=== PATIENT | male | born 1965 | race Asian ===

== ENCOUNTER 2017-05-22 09:38 | Day surgery (SDC) | payer BC ==
[~2017-05-22] VITALS: Ht 172.7 cm; Wt 78.8 kg
[2017-05-22] MEDS ORDERED: LACTATED RINGERS 1,000 ML IV SCH (10:14)
[2017-05-22] MEDS ORDERED: FINA5TAB4 PO (10:18)
[2017-05-22] MEDS ORDERED: OXYBUTIN PO (10:18)
[2017-05-22] MEDS ORDERED: TAMS0.4C2 PO (10:18)
[2017-05-22 10:25] VITALS: BP 110/76
[2017-05-22] MEDS ORDERED: MIDAZOLAM 1 MG/ML, 2ML ONE ×2 (10:49→11:02)
[2017-05-22] MEDS ORDERED: FENTANYL PF 250 MCG/5ML ONE (11:00)
[2017-05-22] MEDS ORDERED: LIDOCAINE-MPF 2% ,5ML ONE (11:01)
[2017-05-22] MEDS ORDERED: PROPOFOL 10 MG/ML, 20ML ONE (11:01)
[2017-05-22] MEDS ORDERED: KETAMINE 10 MG/ML, 20ML ONE (11:02)
[2017-05-22] MEDS ORDERED: CIPROFLOXACIN/PMX 400MG/200ML 200 ML ONE (11:03)
[2017-05-22] MEDS ORDERED: GENTAMICIN 80 MG/2 ML ONE (11:07)
[2017-05-22] MEDS ORDERED: AMPICILLIN 1 GM ONE (11:07)
[2017-05-22] MEDS ORDERED: DEXAMETHASONE 4 MG/ML, 1ML ONE ×2 (11:15)
[2017-05-22] MEDS ORDERED: EPHEDRINE 50 MG/ML, 1ML ONE (11:17)
[2017-05-22] MEDS ORDERED: hydrALAzine 20 MG/ML, 1ML IV PRN (11:30)
[2017-05-22] MEDS ORDERED: FENTANYL PF 100 MCG/2ML IV PRN (11:30)
[2017-05-22] MEDS ORDERED: ACETAMINOPHEN 325 MG TABLET PO PRN (11:30)
[2017-05-22] MEDS ORDERED: HYDROmorphone 1 MG/ML, 1ML IV PRN (11:30)
[2017-05-22] MEDS ORDERED: MEPERIDINE/PF 25MG/0.5ML IVPush PRN (11:30)
[2017-05-22] MEDS ORDERED: LABETALOL 5MG/ML, 20ML IV PRN (11:30)
[2017-05-22] MEDS ORDERED: PROMETHAZINE 25 MG/ML, 1ML IV PRN (11:30)
[2017-05-22] MEDS ORDERED: ONDANSETRON 2MG/ML, 2ML IVPush PRN (11:30)
[2017-05-22] MEDS ORDERED: OXYcodone 5 MG/5 ML ORAL.SOL UDC PO PRN (11:30)
[2017-05-22] MEDS ORDERED: ONDANSETRON 2MG/ML, 2ML ONE ×3 (12:16→13:35)
[2017-05-22] MEDS ORDERED: OXYcodone 5 MG/5 ML ORAL.SOL UDC ONE (13:15)
[2017-05-22] MEDS ORDERED: PROMETHAZINE 25 MG/ML, 1ML ONE (13:35)
== END 2017-05-22 15:50 | disposition home or self-care (01) ==
LOC: OUT 09:38
PROVIDERS: ATTEND Student in an Organized Health Care Education/Training Program
DX: N20.2 Calculus of kidney with calculus of ureter (principal); E11.9 Type 2 diabetes mellitus without complications; I10 Essential (primary) hypertension; K21.9 Gastro-esophageal reflux disease without esophagitis; G47.33 Obstructive sleep apnea (adult) (pediatric); Z85.46 Personal history of malignant neoplasm of prostate; Z98.890 Other specified postprocedural states; Z79.82 Long term (current) use of aspirin
CPT/HCPCS: 52356; 74018; 76001; 82360; 88300; C1758; C1769; C2617; J0290; J0744; J1100; J1580; J2250; J2405; J2550; J2704; J3010; J3490; J7120

== ENCOUNTER → 2017-07-15 | Outpatient (CLI) | payer BC ==
[~2017-07-15] MED LIST: FINA5TAB4 PO; OXYBUTIN PO; TAMS0.4C2 PO
== END | disposition home or self-care (01) ==
LOC: CFH 16:29
PROVIDERS: ATTEND Student in an Organized Health Care Education/Training Program
DX: N13.2 Hydronephrosis with renal and ureteral calculous obstruction (principal)
CPT/HCPCS: 74018; 76770